=== PATIENT | male | born 2000 | race Asian ===

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

== ENCOUNTER 2021-02-06 07:00 | Outpatient (CLI) | payer MEDICAID ==
[2021-02-06 20:40] LABS: CALCIUM 10.1 mg/dL (8.5-10.3); POTASSIUM 3.8 mmol/L (3.5-5.0)
== END 2021-02-06 23:59 | disposition home or self-care (01) ==
LOC: LAB.N 07:00
PROVIDERS: ATTEND Family Medicine
DX: G40.309 Generalized idiopathic epilepsy and epileptic syndromes, not intractable, without status epilepticus (principal)
CPT/HCPCS: 36415; 80048; 80175; 80177

== ENCOUNTER 2021-06-29 12:16 | Outpatient (CLI) | payer MEDICAID | END 2021-06-29 12:17 | disposition critical access hospital (66) | LOC: EMS 12:16 | DX: R56.9 Unspecified convulsions (principal) | CPT/HCPCS: A0425; A0427; A0999 ==

== ENCOUNTER 2021-06-29 12:30 | Emergency (ER) | payer MEDICAID ==
[2021-06-29] MEDS ORDERED: SODIUM CHLORIDE 0.9% 1,000 ML IV STA (12:48)
--- NOTE | 2021-06-29 12:51 | ED Physician Documentation ---
History of Present Illness - Stated complaint Stated Complaint: POST SZ - Chief complaint Chief Complaint: Trauma Hd/Nk - Additonal information Additional information: 21-year-old male who has a history of a known seizure disorder presents the emergency department after a seizure at work. He reportedly suddenly lost consciousness fell backwards striking his head on concrete and then proceeded to have a full body tonic-clonic seizure that lasted approximately 1 minute. He arrives to the ER on a backboard in C-spine collar. He is somewhat somnolent but able to answer most questions appropriately. He reports that he takes Keppra 750 mg daily for his seizure disorder. Last seizure was well over 1 year ago. Denies any recent illness. Denies any missing the doses of Keppra. He is at this time complaining of a headache and neck pain. Review of Systems Constitutional: denies: Fever, Chills Eyes: reports: Reviewed and negative Ears: reports: Reviewed and negative Nose: reports: Reviewed and negative Throat: reports: Reviewed and negative Cardiac: reports: Reviewed and negative Respiratory: reports: Reviewed and negative GI: reports: Reviewed and negative : reports: Reviewed and negative Skin: reports: Reviewed and negative Musculoskeletal: reports: Neck pain Neurologic: reports: Generalized weakness, Seizure, Headache. denies: Head injury Psychiatric: reports: Reviewed and negative PD PAST MEDICAL HISTORY - Past Medical History Cardiovascular: None Respiratory: None Neuro: Seizure disorder GI: None Psych: Depression, Anxiety - Past Surgical History Past Surgical History: No - Present Medications Home Medications: Ambulatory Orders Medication Instructions Recorded Confirmed lamoTRIgine [Lamictal] 50 mg PO BID 03/16/16 06/29/21 Cariprazine HCl [Vraylar] 3 mg DAILY 06/29/21 06/29/21 Levetiracetam [Keppra] 750 mg PO BID 06/29/21 06/29/21 - Allergies Allergies/Adverse Reactions: Allergies Allergy/AdvReac Type Severity Reaction Status Date / Time No Known Drug Allergies Allergy Verified 06/29/21 12:46 - Social History Does the pt smoke?: No Smoking Status: Never smoker Does the pt drink ETOH?: No Does the pt have substance abuse?: No - Immunizations Immunizations are current?: Yes - POLST Patient has POLST: No PD ED PE EXPANDED - General General: No acute distress, Well developed/nourished, Lethargic - HEENT HEENT: PERRL, Moist mucous membranes - Neck Neck: Supple w/out meningeal sx, Soft tissue TTP, Other (tenderness posterior neck, not midline). No: Adenopathy, Bony TTP - Cardiac Cardiac: Regular Rate, Radial strong equal, Pedal strong equal, Cap refill < 2 sec - Respiratory Respiratory: Clear to ausultation arlene. No: Distress, Labored - Abdomen Abdomen: Normal Bowel sounds. No: Tender to palpation - Derm Derm: Normal color, Warm and dry. No: Rash, Abrasion (s) - Extremities Extremities: Normal. No: Deformity, Tenderness - Neuro Neuro: Alert and Oriented X 3, Lethargic, CNII-XII intact, Normal speech - GCS Eye Opening: Spontaneous Motor: Obeys Commands Verbal: Oriented Total: 15 Results - Vitals Vitals: Vital Signs - 24 hr 06/29/21 06/29/21 12:35 14:01 Temperature 36.7 C 36.3 C L Heart Rate 81 89 Respiratory 16 16 Rate Blood Pressure 128/64 130/87 H O2 Saturation 98 99 Oxygen O2 Source Room air - Labs Labs: Laboratory Tests 06/29/21 06/29/21 06/29/21 13:05 13:05 13:54 WBC 6.2 RBC 5.29 Hgb 15.9 Hct 45.9 MCV 86.8 MCH 30.1 MCHC 34.6 RDW 11.8 L Plt Count 242 MPV 9.7 Neut # (Auto) 4.5 Lymph # (Auto) 1.2 L [place] # (Auto) 0.4 Eos # (Auto) 0.1 Baso # (Auto) 0.0 Absolute Nucleated RBC 0.00 Nucleated RBC % 0.0 Sodium 140 Potassium 4.3 Chloride 104 Carbon Dioxide 27 Anion Gap 9.0 BUN 16 Creatinine 1.0 Estimated GFR (MDRD) 95 Glucose 113 H Calcium 9.4 Total Bilirubin 0.6 AST 27 ALT 50 Alkaline Phosphatase 72 Total Protein 8.0 Albumin 4.7 Globulin 3.3 Albumin/Globulin Ratio 1.4 Lipase 23 Urine Opiates Screen NEGATIVE Ur Oxycodone Screen NEGATIVE Urine Methadone Screen NEGATIVE Ur Propoxyphene Screen NEGATIVE Ur Barbiturates Screen NEGATIVE Ur Tricyclics Screen NEGATIVE Ur Phencyclidine Scrn NEGATIVE Ur Amphetamine Screen NEGATIVE U Methamphetamines Scrn NEGATIVE U Benzodiazepines Scrn NEGATIVE Urine Cocaine Screen NEGATIVE U Cannabinoids Screen NEGATIVE - Rads (name of study) CT head Radiology: Final report received (No CT evidence of acute intracranial pathology. No significant change from previous study.) cervical CT Radiology: Final report received (No acute cervical spine fracture or dislocation.) PD MEDICAL DECISION MAKING - ED course Complexity details: reviewed results, re-evaluated patient, d/w patient ED course: 21-year-old male who has a history of known seizure disorder presents the emergency department after witnessed seizure at work in which he suddenly lost consciousness fell backwards striking his head on concrete and then proceeded to have a generalized tonic-clonic seizure that last about 1 minute. He presented to the ER on a backboard and c-collar in place complaining of a headache and neck pain. CT of the head and neck were unremarkable. Screening electrolytes were also without worrisome findings. Month screen negative. Patient reports that his last seizure was about 1 year ago and previous to that it was 2 to 3 years. He is attended by Dr. Clifford neurologist through [facility]. At this time no further interventions are warranted. Patient is advised to follow-up closely with Dr. Diaz. If seizures become m ore frequent he should consider change or adjustment in his medications. Patient is advised to avoid driving until cleared by neurology. Departure - Departure Disposition: 01 Home, Self Care Clinical Impression: Seizure Condition: Stable Record reviewed to determine appropriate education?: Yes Instructions: Epilepsy Seizures Follow-Up: Luiz Diaz MD [Physician No Access] - Comments: Hank jiménez are seen in the emergency department today after he had a seizure at work. Your last seizure was about 1 year ago. Please continue to take the Keppra as already prescribed. I advise you discuss this ED visit with your neurologist Dr. Diaz. If your seizures are becoming more frequent there may be an indication to adjust your medications. Your CT of your head and your neck did not show any worrisome findings today. I expect that you will feel somewhat lethargic for the next 24 to 48 hours. If you develop any fevers, have return of the seizure activity, sudden severe headache slurred speech then please return immediately to the ER for second evaluation. Please do not drive a vehicle or operate heavy machinery until cleared by your neurologist. Also avoid standing bodies of water or unattended bathtubs as any seizure activity could result in sudden drowning.
--- NOTE | 2021-06-29 13:22 | CT Report ---
PROCEDURE: CERVICAL SPINE WO INDICATIONS: neck pain after seizure TECHNIQUE: Noncontrast 3 mm thick sections acquired from the skull base to the T4 level. Sagittal and coronal r eformats were then constructed. For radiation dose reduction, the following was used: automated exp osure control, adjustment of mA and/or kV according to patient size. COMPARISON: 02/16/2020. FINDINGS: Image quality: Excellent. Bones: No fractures or dislocations. Mild straightening of normal cervical lordosis is seen. Visual ized superior ribs are intact. Soft tissues: Prevertebral soft tissues are normal in thickness. No paravertebral hematomas. No ap ical pneumothoraces. IMPRESSION: No acute cervical spine fracture or dislocation. Reviewed by: Randall Trivedi MD on 06/29/2021 1:21 PM PDT Approved by: Randall Trivedi MD on 06/29/2021 1:21 PM PDT Station ID: [id number]
--- NOTE | 2021-06-29 13:23 | CT Report ---
PROCEDURE: HEAD WO INDICATIONS: headache after seizure, falling and striking head TECHNIQUE: Noncontrast 4.5 mm thick angled axial sections acquired from the foramen magnum to the vertex. For r adiation dose reduction, the following was used: automated exposure control, adjustment of mA and/or kV according to patient size. COMPARISON: 02/16/2020. FINDINGS: Image quality: Excellent. CSF spaces: Basal cisterns are patent. No extra-axial fluid collections. Ventricles are normal in size and shape. Brain: No midline shift. No intracranial masses or hemorrhage. Anne-white matter interface is norm al. Skull and face: Calvarium and visualized facial bones are intact, without suspicious lesions. Sinuses: Visualized sinuses and mastoids are clear. IMPRESSION: No CT evidence of acute intracranial pathology. No significant changes from previous jalen dy. Reviewed by: Randall Trivedi MD on 06/29/2021 1:22 PM PDT Approved by: Randall Trivedi MD on 06/29/2021 1:22 PM PDT Station ID: [id number]
[2021-06-29 13:26] LABS: BASOPHILS % (AUTO) 0.5 %; EOSINOPHILS # (AUTO) 0.1 10^3/uL (0.0-0.7); EOSINOPHILS % (AUTO) 1.9 %; HCT - HEMATOCRIT 45.9 % (42.0-52.0); HGB - HEMOGLOBIN 15.9 g/dL (14.0-18.0); LYMPHOCYTES # (AUTO) 1.2 10^3/uL (1.5-3.5); LYMPHOCYTES % (AUTO) 19.1 %; MEAN CORPUSCULAR HEMOGLOBIN 30.1 pg (27.0-31.0); MEAN CORPUSCULAR HGB CONC 34.6 g/dL (32.0-36.0); MEAN CORPUSCULAR VOLUME 86.8 fL (80.0-94.0); MEAN PLATELET VOLUME 9.7 fL (7.4-11.4); MONOCYTES # (AUTO) 0.4 10^3/uL (0.0-1.0); MONOCYTES % (AUTO) 6.6 %; NEUTROPHILS # (AUTO) 4.5 10^3/uL (1.5-6.6); NEUTROPHILS % (AUTO) 71.7 %; PLT - PLATELET COUNT 242 10^3/uL (130-450); RED BLOOD COUNT 5.29 10^6/uL (4.70-6.10); RED CELL DISTRIBUTION WIDTH 11.8 % (12.0-15.0); WHITE BLOOD COUNT 6.2 x10^3/uL (4.8-10.8)
[2021-06-29 13:39] LABS: ALBUMIN 4.7 g/dL (3.2-5.5); ALBUMIN/GLOBULIN RATIO 1.4 (1.0-2.2); BILIRUBIN,TOTAL 0.6 mg/dL (0.2-1.0); CALCIUM 9.4 mg/dL (8.5-10.3); POTASSIUM 4.3 mmol/L (3.5-5.0)
[2021-06-29 14:05] LABS: MUDS CUTOFF CONCENTRATIONS CUTOFF CONC BELOW:
[2021-06-29 14:25] LABS: AMPHETAMINE SCREEN,URINE NEGATIVE (NEGATIVE); BARBITURATE SCREEN,UR NEGATIVE (NEGATIVE); BENZODIAZEPINES SCREEN, URINE NEGATIVE (NEGATIVE); COCAINE SCREEN URINE NEGATIVE (NEGATIVE); METHADONE SCREEN, URINE NEGATIVE (NEGATIVE); METHAMPHETAMINES SCREEN, URINE NEGATIVE (NEGATIVE); OPIATE SCREEN, URINE NEGATIVE (NEGATIVE); OXYCODONE SCREEN, URINE NEGATIVE (NEGATIVE); PROPOXYPHENE SCREEN, URINE NEGATIVE (NEGATIVE); THC CANNABINOID SCREEN, URINE NEGATIVE (NEGATIVE); TRICYCLIC ANTIDEPRESSANT,URINE NEGATIVE (NEGATIVE)
[2021-06-29 15:28] VITALS: BP 113/64
== END 2021-06-29 14:42 | disposition home or self-care (01) ==
LOC: EDUNIT# → EDBD → ED 12:30
DX: S09.90XA Unspecified injury of head, initial encounter (principal); G40.909 Epilepsy, unspecified, not intractable, without status epilepticus; W18.39XA Other fall on same level, initial encounter; Y99.0 Civilian activity done for income or pay
CPT/HCPCS: 36415; 80053; 80306; 83690; 85025; 96360; 96361; 99284

== ENCOUNTER 2022-07-21 17:51 | Outpatient (CLI) | payer MEDICAID | END 2022-07-21 17:52 | disposition EMS.NT | LOC: EMS 17:51 | DX: R07.89 Other chest pain (principal) ==

== ENCOUNTER 2022-08-29 19:16 | Outpatient (CLI) | payer MEDICAID | END 2022-08-29 19:17 | disposition critical access hospital (66) | LOC: EMS 19:16 | DX: R56.9 Unspecified convulsions (principal) | CPT/HCPCS: A0425; A0429; A0999 ==

== ENCOUNTER 2022-08-29 19:33 | Emergency (ER) | payer MEDICAID ==
[2022-08-29] MEDS ORDERED: SODIUM CHLORIDE 0.9% 1,000 ML IV STA (19:54)
[2022-08-29 20:04] LABS: BASOPHILS % (AUTO) 0.3 %; EOSINOPHILS # (AUTO) 0.2 10^3/uL (0.0-0.7); EOSINOPHILS % (AUTO) 2.6 %; HCT - HEMATOCRIT 45.2 % (42.0-52.0); HGB - HEMOGLOBIN 15.6 g/dL (14.0-18.0); LYMPHOCYTES # (AUTO) 1.3 10^3/uL (1.5-3.5); LYMPHOCYTES % (AUTO) 22.3 %; MEAN CORPUSCULAR HEMOGLOBIN 29.8 pg (27.0-31.0); MEAN CORPUSCULAR HGB CONC 34.5 g/dL (32.0-36.0); MEAN CORPUSCULAR VOLUME 86.3 fL (80.0-94.0); MEAN PLATELET VOLUME 9.9 fL (7.4-11.4); MONOCYTES # (AUTO) 0.4 10^3/uL (0.0-1.0); MONOCYTES % (AUTO) 7.1 %; NEUTROPHILS # (AUTO) 3.9 10^3/uL (1.5-6.6); NEUTROPHILS % (AUTO) 67.5 %; PLT - PLATELET COUNT 238 10^3/uL (130-450); RED BLOOD COUNT 5.24 10^6/uL (4.70-6.10); RED CELL DISTRIBUTION WIDTH 11.9 % (12.0-15.0); WHITE BLOOD COUNT 5.8 x10^3/uL (4.8-10.8)
[2022-08-29 20:18] LABS: ALBUMIN 4.8 g/dL (3.2-5.5); ALBUMIN/GLOBULIN RATIO 1.5 (1.0-2.2); BILIRUBIN,TOTAL 0.5 mg/dL (0.2-1.0); CALCIUM 9.8 mg/dL (8.5-10.3); CREATININE 1.2 mg/dL (0.6-1.2); POTASSIUM 3.7 mmol/L (3.5-5.0); TOTAL PROTEIN 7.9 g/dL (6.7-8.2)
[2022-08-29 20:21] LABS: MUDS CUTOFF CONCENTRATIONS CUTOFF CONC BELOW:
[2022-08-29] MEDS ORDERED: levETIRAcetam 250 MG TABLET PO STA (20:24)
[2022-08-29 20:36] VITALS: BP 124/75
[2022-08-29 20:38] LABS: AMPHETAMINE SCREEN,URINE NEGATIVE (NEGATIVE); BARBITURATE SCREEN,UR NEGATIVE (NEGATIVE); BENZODIAZEPINES SCREEN, URINE NEGATIVE (NEGATIVE); COCAINE SCREEN URINE NEGATIVE (NEGATIVE); METHADONE SCREEN, URINE NEGATIVE (NEGATIVE); METHAMPHETAMINES SCREEN, URINE NEGATIVE (NEGATIVE); OPIATE SCREEN, URINE NEGATIVE (NEGATIVE); OXYCODONE SCREEN, URINE NEGATIVE (NEGATIVE); PROPOXYPHENE SCREEN, URINE NEGATIVE (NEGATIVE); THC CANNABINOID SCREEN, URINE NEGATIVE (NEGATIVE); TRICYCLIC ANTIDEPRESSANT,URINE NEGATIVE (NEGATIVE)
--- NOTE | 2022-08-29 20:42 | ED Physician Documentation ---
History of Present Illness - Stated complaint Stated Complaint: SZ - Chief complaint Chief Complaint: Neuro - Additonal information Additional information: 22-year-old male presents emergency department for evaluation of a seizure episode that occurred while at work. He does have a history of epilepsy for which she takes Lamictal as well as Keppra. Until about 3 months ago he had not had a seizure for about a year but over the last 3 months he has had now 3. Because of increased seizure frequency his neurologist at [facility] increase the Keppra to 1000 mg twice daily. He is uncertain of his Lamictal dose. 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 EMS was summoned and he presents here alert though mildly postictal. No fevers. No recent trauma. In the past he is reported negative neuroimaging Review of Systems Constitutional: denies: Fever, Chills Eyes: reports: Reviewed and negative Nose: reports: Reviewed and negative Throat: reports: Reviewed and negative GI: reports: Reviewed and negative : reports: Reviewed and negative Skin: reports: Reviewed and negative Neurologic: reports: Seizure PD PAST MEDICAL HISTORY - Past Medical History Past Medical History: Yes Cardiovascular: None Respiratory: None Neuro: Seizure disorder GI: None Psych: Depression, Anxiety - Past Surgical History Past Surgical History: No - Present Medications Home Medications: Ambulatory Orders Medication Instructions Recorded Confirmed lamoTRIgine [Lamictal] 50 mg PO BID 03/16/16 08/29/22 Cariprazine HCl [Vraylar] 3 mg PO DAILY 06/29/21 08/29/22 Levetiracetam [Keppra] 750 mg PO BID 06/29/21 08/29/22 - Allergies Allergies/Adverse Reactions: Allergies Allergy/AdvReac Type Severity Reaction Status Date / Time No Known Drug Allergies Allergy Verified 08/29/22 19:37 - Social History Does the pt smoke?: No Smoking Status: Never smoker Does the pt drink ETOH?: No Does the pt have substance abuse?: No - Immunizations Immunizations are current?: Yes - POLST Patient has POLST: No PD ED PE NORMAL - General General: Alert and oriented X 3, No acute distress, Well developed/nourished - HEENT HEENT: Atraumatic, Ears normal, Moist mucous membranes, Pharynx benign - Neck Neck: Supple, no meningeal sign, No adenopathy - Cardiac Cardiac: RRR, No murmur - Respiratory Respiratory: No respiratory distress, Clear bilaterally - Abdomen Abdomen: Normal bowel sounds, Soft, Non tender - Back Back: No CVA TTP, No spinal TTP - Derm Derm: Warm and dry - Extremities Extremities: No deformity, No tenderness to palpate, Normal ROM s pain - Neuro Neuro: Alert and oriented X 3, 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 Eye Opening: Spontaneous Motor: Obeys Commands Verbal: Oriented GCS Score: 15 Results - Vitals Vitals: Vital Signs - 24 hr 08/29/22 08/29/22 08/29/22 19:37 20:10 20:35 Temperature 37.3 C Heart Rate 88 90 87 Respiratory 18 22 24 Rate Blood Pressure 125/72 123/75 124/75 O2 Saturation 97 96 99 Oxygen O2 Source Room air - Labs Labs: Laboratory Tests 08/29/22 08/29/22 08/29/22 19:59 19:59 20:16 WBC 5.8 RBC 5.24 Hgb 15.6 Hct 45.2 MCV 86.3 MCH 29.8 MCHC 34.5 RDW 11.9 L Plt Count 238 MPV 9.9 Neut # (Auto) 3.9 Lymph # (Auto) 1.3 L [place] # (Auto) 0.4 Eos # (Auto) 0.2 Baso # (Auto) 0.0 Absolute Nucleated RBC 0.00 Nucleated RBC % 0.0 Sodium 139 Potassium 3.7 Chloride 105 Carbon Dioxide 25 Anion Gap 9.0 BUN 24 H Creatinine 1.2 Estimated GFR (MDRD) 76 L Glucose 105 H Calcium 9.8 Total Bilirubin 0.5 AST 24 ALT 30 Alkaline Phosphatase 68 Total Protein 7.9 Albumin 4.8 Globulin 3.1 Albumin/Globulin Ratio 1.5 Lipase 33 Urine Opiates Screen NEGATIVE Ur Oxycodone Screen NEGATIVE Urine Methadone Screen NEGATIVE Ur Propoxyphene Screen NEGATIVE Ur Barbiturates Screen NEGATIVE Ur Tricyclics Screen NEGATIVE Ur Phencyclidine Scrn NEGATIVE Ur Amphetamine Screen NEGATIVE U Methamphetamines Scrn NEGATIVE U Benzodiazepines Scrn NEGATIVE Urine Cocaine Screen NEGATIVE U Cannabinoids Screen NEGATIVE PD MEDICAL DECISION MAKING - ED course Complexity details: reviewed results, re-evaluated patient, considered differential, d/w patient, d/w family ED course: 22-year-old male who has a known seizure disorder presents to the emergency department after having a seizure at work. He did have an aura knew that he was going to seize and simply laid down. EMS was summoned and he was transported here. Initially on arrival he was mildly lethargic but over the course of time here in the ER he is fully awakened. He has no focal neurodeficits. CBC and electrolytes were unremarkable. Urine drug screen was negative. He is followed closely by a neurologist at [facility]. His Keppra dose was increased recently because over the last 3 months he has had 3 seizures. There is no indication today to repeat neuroimaging which has been negative in the past but I am encouraging the patient to have close follow-up with his neurologist to determine additional adjunct therapy for control of his seizure disorder. Patient is reminded not to drive. Otherwise emergent return precautions were discussed for recurrent seizures or status epilepticus. Departure - Departure Disposition: 01 Home, Self Care Clinical Impression: Seizure Epilepsy Qualifiers: Epilepsy type: unspecified Intractability: not intractable Status epilepticus: without status epilepticus Qualified Code(s): G40.909 - Epilepsy, unspecified, not intractable, without status epilepticus Condition: Stable Record reviewed to determine appropriate education?: Yes Instructions: Epilepsy Seizures Comments: Hank, you came to the emergency department today because she had a seizure at work. Reports he has had a least 3 seizures over the last few months. Your neurologist recently increased her dose of Keppra. We did give you your 1000 mg dose tonight here in the ER. When you go home you are to immediately take your dose of Lamictal. Here in the emergency department we did obtain a CBC and electrolytes that were all entirely normal. I encourage you to follow closely with your neurologist to discuss this most recent seizure event. They may want to continue to adjust your medications or add new ones. Return to the ER if you have recurrent seizures that do not stop as you would expect, develop any fevers, chest pain or significant lethargy
== END 2022-08-29 21:08 | disposition home or self-care (01) ==
LOC: ED 19:33
DX: G40.909 Epilepsy, unspecified, not intractable, without status epilepticus (principal)
CPT/HCPCS: 36415; 80053; 80306; 83690; 85025; 96360; 99283; 99284; A9270

== ENCOUNTER 2022-09-03 10:10 | Outpatient (CLI) | payer MEDICAID | END 2022-09-03 10:11 | disposition home or self-care (01) | LOC: LAB.N 10:10 | PROVIDERS: ATTEND Psychiatry & Neurology Neurology | DX: G40.909 Epilepsy, unspecified, not intractable, without status epilepticus (principal) | CPT/HCPCS: 36415; 80177 ==

== ENCOUNTER 2022-10-31 14:25 | Outpatient (CLI) | payer MEDICAID ==
[2022-10-31 22:46] LABS: CHLAMYDIA TRACHOMATIS DNA NEGATIVE (NEGATIVE); NEISSERIA GONORRHOEAE DNA NEGATIVE (NEGATIVE)
== END 2022-10-31 14:26 | disposition home or self-care (01) ==
LOC: LAB.N 14:25
PROVIDERS: ATTEND Psychiatry & Neurology Neurology
DX: G40.909 Epilepsy, unspecified, not intractable, without status epilepticus (principal); Z11.3 Encounter for screening for infections with a predominantly sexual mode of transmission
CPT/HCPCS: 80175; 80177; 87491; 87591; 87661

== ENCOUNTER 2022-12-21 10:47 | Emergency (ER) | payer MEDICAID ==
--- NOTE | 2022-12-21 12:18 | ED Physician Documentation ---
PD HPI MHE - Stated complaint Stated Complaint: SI - Chief complaint Chief Complaint: MHE - History obtained from History obtained from: Patient - History of Present Illness Primary symptom: Suicidal ideation, Medical clearance Timing - onset: How many weeks ago (2-3) Contributing factors: Other (PTSD) Similar symptoms before: Diagnosis (PTSD) Recently seen: Clinic - Additional information Additional information: Hank Gutierrez is a 22-year-old male with a history of depression and schizoaffective disorder as well as epilepsy. He has had a prior suicide attempt when he was not wanting to deal with his epilepsy and medications anymore. That was at about age 20. He was in the hospital at [facility]. 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 He awakens in the night with nightmares. He has gone into see his psychiatrist and has had his sleep medication increased to try to prevent him from waking up with nightmares in the middle of the night. He is now feeling suicidal and feels like he just wants to get in his car drive to the back for the bridge and jump. He does not have any weapons in his home he lives with his mother and father is not very close to them he does have a number of friends. He has a cousin in [place] with it he is close to and he does not have a current romantic relationship. Review of Systems Constitutional: denies: Fever Eyes: denies: Decreased vision Ears: denies: Ear pain Nose: denies: Rhinorrhea / runny nose, Congestion Throat: denies: Sore throat Cardiac: denies: Chest pain / pressure Respiratory: denies: Dyspnea, Cough GI: denies: Nausea, Vomiting, Constipation, Diarrhea : denies: Dysuria, Frequency Skin: denies: Rash Musculoskeletal: denies: Neck pain, Back pain, Extremity pain Neurologic: denies: Generalized weakness, Focal weakness, Numbness Psychiatric: reports: Depressed, Suicidal, Anxiety, Insomnia PD PAST MEDICAL HISTORY - Past Medical History Cardiovascular: None Respiratory: None Neuro: Seizure disorder GI: None Psych: Depression, Anxiety - Past Surgical History Past Surgical History: No - Present Medications Home Medications: Ambulatory Orders Medication Instructions Recorded Confirmed Brexpiprazole [Rexulti] 2 mg PO DAILY 12/21/22 12/21/22 Levetiracetam [Keppra] 1,000 mg PO BID 12/21/22 12/21/22 Prazosin [Minipress] 1 - 2 mg PO QPM 12/21/22 12/21/22 lamoTRIgine [LaMICtal] 25 mg PO BID 12/21/22 12/21/22 lamoTRIgine [Lamictal] 200 mg PO BID 12/21/22 12/21/22 - Allergies Allergies/Adverse Reactions: Allergies Allergy/AdvReac Type Severity Reaction Status Date / Time No Known Drug Allergies Allergy Verified 12/21/22 10:57 - Social History Does the pt smoke?: No Smoking Status: Never smoker Does the pt drink ETOH?: No Does the pt have substance abuse?: No - Immunizations Immunizations are current?: Yes - POLST Patient has POLST: No PD ED PE NORMAL - Vitals Vital signs reviewed: Yes (hypertensive mild ) - General General: Alert and oriented X 3, No acute distress, Well developed/nourished - HEENT HEENT: Atraumatic, PERRL, EOMI - Neck Neck: Supple, no meningeal sign, No bony TTP - Cardiac Cardiac: RRR, No murmur - Respiratory Respiratory: No respiratory distress, Clear bilaterally - Abdomen Abdomen: Soft, Non tender - Back Back: No CVA TTP, No spinal TTP - Derm Derm: Normal color, Warm and dry, No rash - Extremities Extremities: No deformity, No edema - Neuro Neuro: Alert and oriented X 3, morphologist 2-12 intact, No motor deficit, No sensory deficit, Normal speech Eye Opening: Spontaneous Motor: Obeys Commands Verbal: Oriented GCS Score: 15 - Psych Psych: Other (mood is somber and affect is flat) Results - Vitals Vitals: Vital Signs - 24 hr 12/21/22 10:51 Temperature 36.5 C Heart Rate 97 Respiratory 16 Rate Blood Pressure 141/65 H O2 Saturation 96 Oxygen O2 Source Room air - Labs Labs: Laboratory Tests 12/21/22 12/21/22 12/21/22 11:00 12:27 12:27 WBC 5.2 RBC 5.34 Hgb 15.9 Hct 46.2 MCV 86.5 MCH 29.8 MCHC 34.4 RDW 12.0 Plt Count 228 MPV 9.9 Neut # (Auto) 3.5 Lymph # (Auto) 1.2 L [place] # (Auto) 0.4 Eos # (Auto) 0.1 Baso # (Auto) 0.0 Absolute Nucleated RBC 0.00 Nucleated RBC % 0.0 Sodium 137 Potassium 3.9 Chloride 103 Carbon Dioxide 22 Anion Gap 12.0 BUN 16 Creatinine 1.0 Estimated GFR (MDRD) 94 Glucose 96 Calcium 9.7 Total Bilirubin 0.6 AST 20 ALT 23 Alkaline Phosphatase 59 Total Protein 7.9 Albumin 4.9 Globulin 3.0 Albumin/Globulin Ratio 1.6 Lipase 28 TSH Urine Color YELLOW Urine Clarity CLEAR Urine pH 6.0 Ur Specific [place] 1.010 Urine Protein NEGATIVE Urine Glucose (UA) NEGATIVE Urine Ketones NEGATIVE Urine Occult Blood NEGATIVE Urine Nitrite NEGATIVE Urine Bilirubin NEGATIVE Urine Urobilinogen 0.2 (NORMAL) Ur Leukocyte Esterase NEGATIVE Ur Microscopic Review NOT INDICATED Urine Culture Comments NOT INDICATED Salicylates < 6.0 Urine Opiates Screen NEGATIVE Ur Oxycodone Screen NEGATIVE Urine Methadone Screen NEGATIVE Ur Propoxyphene Screen NEGATIVE Acetaminophen < 10 L Ur Barbiturates Screen NEGATIVE Ur Tricyclics Screen NEGATIVE Ur Phencyclidine Scrn NEGATIVE Ur Amphetamine Screen NEGATIVE U Methamphetamines Scrn NEGATIVE U Benzodiazepines Scrn NEGATIVE Urine Cocaine Screen NEGATIVE U Cannabinoids Screen NEGATIVE Ethyl Alcohol < 5.0 12/21/22 12:27 WBC RBC Hgb Hct MCV MCH MCHC RDW Plt Count MPV Neut # (Auto) Lymph # (Auto) [place] # (Auto) Eos # (Auto) Baso # (Auto) Absolute Nucleated RBC Nucleated RBC % Sodium Potassium Chloride Carbon Dioxide Anion Gap BUN Creatinine Estimated GFR (MDRD) Glucose Calcium Total Bilirubin AST ALT Alkaline Phosphatase Total Protein Albumin Globulin Albumin/Globulin Ratio Lipase TSH 0.94 Urine Color Urine Clarity Urine pH Ur Specific [place] Urine Protein Urine Glucose (UA) Urine Ketones Urine Occult Blood Urine Nitrite Urine Bilirubin Urine Urobilinogen Ur Leukocyte Esterase Ur Microscopic Review Urine Culture Comments Salicylates Urine Opiates Screen Ur Oxycodone Screen Urine Methadone Screen Ur Propoxyphene Screen Acetaminophen Ur Barbiturates Screen Ur Tricyclics Screen Ur Phencyclidine Scrn Ur Amphetamine Screen U Methamphetamines Scrn U Benzodiazepines Scrn Urine Cocaine Screen U Cannabinoids Screen Ethyl Alcohol PD Medical Decision Making - ED course Complexity details: reviewed old records, reviewed results, re-evaluated patient, considered differential, d/w patient Reviewed Lab Results: For medical clearance on Hank Gutierrez we reviewed a complete blood count revealing a normal white blood cell count hemoglobin hematocrit and platelets. We reviewed a chemistry series with electrolytes kidney and liver function as well as pancreas, all normal. A TSH was normal. Urine tox screen was negative. Tox screens for salicylate and acetaminophen were negative. Alcohol was negative. We obtained these screening laboratory tests for medical clearance. No findings on the screening labs indicated an abnormality ED course: 22-year-old male with a history of schizoaffective disorder and depression comes to the emergency department feeling suicidal. 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 The patient endorses continued suicidal ideation and is willing to be hospitalized voluntarily. A social work consult was ordered by Dr. Chou. The addiction social worker is not available this afternoon. At shift change care is turned over to Dr. Chou awaiting telepsych evaluation.
[2022-12-21 12:32] LABS: BASOPHILS % (AUTO) 0.4 %; EOSINOPHILS # (AUTO) 0.1 10^3/uL (0.0-0.7); EOSINOPHILS % (AUTO) 1.2 %; HCT - HEMATOCRIT 46.2 % (42.0-52.0); HGB - HEMOGLOBIN 15.9 g/dL (14.0-18.0); LYMPHOCYTES # (AUTO) 1.2 10^3/uL (1.5-3.5); LYMPHOCYTES % (AUTO) 23.5 %; MEAN CORPUSCULAR HEMOGLOBIN 29.8 pg (27.0-31.0); MEAN CORPUSCULAR HGB CONC 34.4 g/dL (32.0-36.0); MEAN CORPUSCULAR VOLUME 86.5 fL (80.0-94.0); MEAN PLATELET VOLUME 9.9 fL (7.4-11.4); MONOCYTES # (AUTO) 0.4 10^3/uL (0.0-1.0); MONOCYTES % (AUTO) 7.1 %; NEUTROPHILS # (AUTO) 3.5 10^3/uL (1.5-6.6); NEUTROPHILS % (AUTO) 67.6 %; PLT - PLATELET COUNT 228 10^3/uL (130-450); RED BLOOD COUNT 5.34 10^6/uL (4.70-6.10); WHITE BLOOD COUNT 5.2 x10^3/uL (4.8-10.8)
[2022-12-21 12:40] LABS: MUDS CUTOFF CONCENTRATIONS CUTOFF CONC BELOW:
[2022-12-21 12:42] LABS: BILIRUBIN,URINE NEGATIVE (NEGATIVE); CLARITY,URINE CLEAR (CLEAR); GLUCOSE, URINE (UA) NEGATIVE (NEGATIVE); KETONES,URINE (UA) NEGATIVE (NEGATIVE); LEUKOCYTE ESTERASE, URINE NEGATIVE (NEGATIVE); NITRITE,URINE NEGATIVE (NEGATIVE); OCCULT BLOOD,URINE NEGATIVE (NEGATIVE); PROTEIN,URINE NEGATIVE (NEGATIVE); UROBILINOGEN,URINE 0.2 (NORMAL) E.U./dL (NORMAL)
[2022-12-21 12:51] LABS: AMPHETAMINE SCREEN,URINE NEGATIVE (NEGATIVE); BARBITURATE SCREEN,UR NEGATIVE (NEGATIVE); BENZODIAZEPINES SCREEN, URINE NEGATIVE (NEGATIVE); COCAINE SCREEN URINE NEGATIVE (NEGATIVE); METHADONE SCREEN, URINE NEGATIVE (NEGATIVE); METHAMPHETAMINES SCREEN, URINE NEGATIVE (NEGATIVE); OPIATE SCREEN, URINE NEGATIVE (NEGATIVE); OXYCODONE SCREEN, URINE NEGATIVE (NEGATIVE); PROPOXYPHENE SCREEN, URINE NEGATIVE (NEGATIVE); THC CANNABINOID SCREEN, URINE NEGATIVE (NEGATIVE); TRICYCLIC ANTIDEPRESSANT,URINE NEGATIVE (NEGATIVE)
[2022-12-21 13:00] LABS: ACETAMINOPHEN < 10 ug/mL (10-30); ALBUMIN 4.9 g/dL (3.2-5.5); ALBUMIN/GLOBULIN RATIO 1.6 (1.0-2.2); ALKALINE PHOSPHATASE 59 IU/L (42-121); ALT ALANINE AMINOTRANSFERASE 23 IU/L (10-60); AST ASPARTATE AMINOTRANSFERASE 20 IU/L (10-42); BILIRUBIN,TOTAL 0.6 mg/dL (0.2-1.0); BUN - BLOOD UREA NITROGEN 16 mg/dL (6-20); CALCIUM 9.7 mg/dL (8.5-10.3); CARBON DIOXIDE - CO2 22 mmol/L (21-32); CHLORIDE 103 mmol/L (101-111); ETOH - ETHANOL < 5.0 mg/dL; GFR - MDRD 94 (>89); GLUCOSE 96 mg/dL (70-100); LIPASE 28 U/L (22-51); POTASSIUM 3.9 mmol/L (3.5-5.0); SALICYLATE < 6.0 mg/dL; SODIUM 137 mmol/L (135-145); TOTAL PROTEIN 7.9 g/dL (6.7-8.2)
--- NOTE | 2022-12-21 14:34 | PHARMACY PROGRESS NOTE ---
- Best Possible Medication History Admit Date and Time: Processed by: Pharmacy Medication History completed: Yes Patient Interview: Pt unable to participate Secondary Source(s): Physician records, Pharmacy records, Insurance records As the person ultimately responsible for medication therapy, providers are able to order a medication from an existing home medication list in [facility] via the "Reconcile Routine" prior to Confirmation of that medication by it support technician. Such practice is discouraged except when the physician, in their clinical judgment, deems that a medical need exists for a medication without regard to previous use.
--- NOTE | 2022-12-21 22:09 | TELEPSYCH PHYS NOTE ---
Telepsych Consultation Note Consult: Name: ARTEM COLLINS: 2000 DateandTime: 12/22/2022 12:21:17 AM [facility] [place] Length of consult: 45 min This evaluation was conducted via video telepsychiatry with the assistance of onsite staff Reason for consult: SI thoughts with a plan Requested by: ER staff History of Present Illness: Patient 22-year-old male with history of Rafael izophrenia reports to the ER complaining of suicidal thoughts and auditory hallucinations. 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 Since stopping the medication, the patient reports hearing babies and people crying. Patient is also having memories of people dying in the ER. 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 The patient states that his current work is triggering symptoms of PTSD and suicidal thoughts the plan to jump off a bridge. Collateral Contacted: Mary for not contacting the collateral:OtherOther: the number give was not in service aunt Rosana- she is a nurse at this ED [phone], he is not close to his parents Sleep issues?: YesSleep Quantity:up and down the patient reports that he takes Prazosin for the nightmares and sometimes it works and other times it doesn't Sleep Quality:poor when having active nightmares Psychiatric History/Treatment History: Past diagnoses: schizoaffective, schizophrenia, PTSD Hospitalizations: YesDescription:age 20 for SI attempt by OD Current Treatment:YesMedication management:YesMedications:Lamictal 25 mg BID, Prazosin 1-2 mg at bed , and Keppra 1000 BIDTherapy:No Suicide Assessment: PSS-3: 1) Over the past 2 weeks have you felt down, depressed or hopeless?Yes 2) Over the past 2 weeks have you had thoughts of killing yourself?Yes 3) Have you ever in your life attempted to kill yourself?Yes Within the past 6 months?No PSS-3 Secondary Screen: 1) Positive on PSS-3 questions 2 & 3 active SI with a past attempt?Yes 2) Have you been thinking about how you might kill yourself?Yes 3) Have you had some intention of acting on your thoughts?Yes 4) Lifetime psychiatric hospitalization?Yes 5) Has drinking or substance abuse ever been a problem for you?No 6) Current irritability, agitation, or aggression?No PSS-3 Secondary Screen Scoring: Severe Notes: Mild(0-2) No current attempt and no plan/intent Moderate(3-4) No current attempt, Plan OR intent but not both Severe(5-6) Current Attempt with Plan AND intent [facility] Safety Assessment: Risk Factors Stressors: 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 Attempts/Self-injury: YesDescription:past OD intention Impulsivity:No Drug/Alcohol History:YesDescription:use of THC age 18- last use Trauma History:YesDescription: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 hears babies crying and sick people and he can't make them stop Access to firearms:No HI/Violence/Property destruction:No Legal: No Family Psych History:YesDescription:depression, anxiety runs in the family Family History of suicide:No Protective Factors: Can handle stress well?No Description:reports no Muslim?No External: Social supports/ Therapeutic relationships: YesDescription:family and friends Relationship history: ok, lives with his parents but stays to him-self Living situation: lives with parents and brother who is 12 Employment: YesDescription:insurance underwriter sales Education: some college Responsibility to family/children/work: YesDescription:work Future orientation:No Health History: Medical History: epilepsy Medications & Freq: Keppra 1000 mg BID Lamictal 25 mg BID prazosin 1-2 mg at bed was taking Rexulti 2 mg - stopped 2 weeks ago Allergies: none Mental Status Exam: Appearance and Attire:Good eye contact Psychomotor agitation:Psychomotor retardation Attitude and behavior:Cooperative Speech:Slow, Soft Mood:Depressed Affect:Flat Thought process:Logical Thought content:Suicidal ideation Perception:Auditory hallucinations Intel:Average Abstract:Appropriate Language:No abnormality Orientation:Oriented x 4 Sense:Normal Knowledge:Appropriate for education and socioeconomic status Memory:Intact Insight:Moderate impairment Judgement:Severe impairment Gait:No abnormality Impression/Risk Assessment: Current Suicide Risk Elevated?Yes Current Violence Risk Elevated?No Issues with ability to care for self?No Summary: The pt is a 22 yo male with a hx of Schizophrenia and PTSD who presents with +AH and SI with a plan to jump off a bridge. The pt is not safe for discharge and needs inpt care. 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 Restart Rexulti 2 mg daily (if available, if not this can be restarted in the psych hospital) Patient psychotic? Therapy: Follow up needed while in the hospital?: YesNumber of times:daily Discussed plan with onsite steam heating installer: Yes Who Dr. Lara Other: n/a Danny Coyle MD [facility] List names and roles of persons who participated in consult: Danny Coyle MD. [facility]
--- NOTE | 2022-12-21 23:57 | ED Physician Documentation ---
ED Addendum - Addendum Addendum: 12/21/22 23:54 The patient was interviewed by telepsychiatry who did recommend the patient be voluntary hospitalization. The patient is agreeable to this. The information was sent to the psychiatric facilities and [facility] actually accepted the patient. It is evening time and they are not able to accept the patient before 11 PM, however transport with [facility] cannot occur until closer to 5 in the morning. The patient is advised of this. At this point he is cooperati ve and understanding of the situation. He has to use his phone to let his family know what was happening. This seemed reasonable as he is voluntary and does not seem to have any triggers related to his family per se. Disposition: The patient is transferred to psychiatric facility. Diagnoses: 1. Disorganized schizophrenia 2. though process abnormality 12/21/22 23:57
[2022-12-22] MEDS ORDERED: lamoTRIgine 25 MG TABLET PO STA
[2022-12-22] MEDS ORDERED: PRAZOSIN 1 MG CAPSULE PO STA
[2022-12-22 06:26] VITALS: BP 126/60
== END 2022-12-22 06:27 ==
LOC: ED 10:47
DX: R45.851 Suicidal ideations (principal); F20.1 Disorganized schizophrenia; F32.A Depression, unspecified; Z20.822 Contact with and (suspected) exposure to COVID-19
CPT/HCPCS: 36415; 80053; 80306; 80307; 80320; 80329; 81003; 83690; 84443; 85025; 87635; 99285; A9270; G0425; Q3014; 81001; 87086